=== PATIENT | female | born 1990 | race African-American/Black ===

== ENCOUNTER 2017-12-24 08:01 | Emergency (ER) | payer MEDICAID ==
[~2017-12-24] VITALS: Ht 165.1 cm; Wt 81.2 kg
[2017-12-24] MEDS ORDERED: Fluorescein Strips RIGHT EYE ONE (08:45)
[2017-12-24] MEDS ORDERED: Fluorescein Strips ONE (08:45)
[2017-12-24] MEDS ORDERED: Pred Forte 1% Opth Susp 1ml RIGHT EYE ONE (08:45)
[2017-12-24] MEDS ORDERED: Tropicamide 1% Opth 15ml Soln RIGHT EYE ONE (08:45)
[2017-12-24] MEDS ORDERED: Tetracaine 0.5% Opth 4ml Soln RIGHT EYE ONE (08:45)
[2017-12-24 08:49] VITALS: BP 107/70
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
[2017-12-24 09:09] VITALS: BP 107/70
== END 2017-12-24 09:29 | disposition home or self-care (01) ==
LOC: EMR 08:39
DX: H20.9 Unspecified iridocyclitis (principal); H57.10 Ocular pain, unspecified eye
CPT/HCPCS: 99282

== ENCOUNTER 2018-05-14 22:16 | Emergency (ER) | payer MEDICAID ==
[2018-05-15 04:56] LABS: APPEARANCE,URINE CLOUDY; COLOR,URINE YELLOW
[2018-05-15 04:57] LABS: BILIRUBIN, URINE NEGATIVE (NEGATIVE); GLUCOSE, URINE (UA) NEGATIVE (NEGATIVE); KETONES,URINE 1+ (NEGATIVE); LEUKOCYTE ESTERASE ,URINE 2+ (NEGATIVE); NITRITE,URINE NEGATIVE (NEGATIVE); PH,URINE 6.5 (4.5-8.0); PROTEIN,URINE 2+ (NEGATIVE); UROBILINOGEN,URINE 4 MG/DL (0.0-1.0)
--- NOTE | 2018-05-15 04:58 | Emergency Room Report ---
History of Present Illness General Chief Complaint: To Be Triaged Source: Patient Present Illness HPI This is a 27-year-old female no past medical history. She presents with chief complaint of vaginal bleeding and passing a mass. She had a D&C for an on February 10. She was 12 weeks then. She was bleeding for about a month. She complaining of severe bleeding and cramping pain started yesterday. Pain was severe. After she passed a mass, she felt better. Pain improved. Denies any fever chills but denies any nausea vomiting. No other complaint. Allergies: Coded Allergies: No Known Allergies (Unverified , 12/24/17) Patient History Past Medical History: see triage record, old chart reviewed Past Surgical History: other Pertinent Family History: none Social History: Denies: smoking Now: No Immunizations: other Reviewed Nursing Documentation: PMH: Agreed; PSxH: Agreed Review of Systems Eye: Denies: eye pain, blurred vision ENT: Denies: ear pain, nose congestion, throat swelling Respiratory: Denies: cough, shortness of breath Cardiovascular: Denies: chest pain, palpitations Gastrointestinal: Denies: abdominal pain, diarrhea, nausea, vomiting Genitourinary: Reports: vag bleed/dc Musculoskeletal: Denies: back pain, joint pain Skin: Denies: rash Neurological: Denies: headache, numbness Endocrine: Denies: increased thirst, increased urine Hematologic/Lymphatic: Denies: easy bruising All Other Systems: negative except mentioned in HPI Physical Exam vitals unremarkable Sp02 EP Interpretation: reviewed, normal General Appearance: well appearing, no apparent distress, alert Head: normocephalic, atraumatic Eyes: bilateral eye PERRL, bilateral eye EOMI ENT: hearing grossly normal, normal pharynx Neck: full range of motion, supple, no meningismus Respiratory: chest non-tender, lungs clear, normal breath sounds Cardiovascular #1: regular rate, rhythm, no murmur Gastrointestinal: normal bowel sounds, non tender, no mass, no organomegaly, no bruit, non-distended Musculoskeletal: back normal, gait/station normal, normal range of motion Psychiatric: mood/affect normal Skin: warm/dry Medical Decision Making Diagnostic Impression: Primary Impression: Retained products of conception Additional Impression: UTI (urinary tract infection) Qualified Codes: N30.00 - Acute cystitis without hematuria ER Course Is presents with vaginal bleeding and passed a mass that is most likely a product of conception. Bleeding much improved. Cramping improved. She may have a urinary tract infection. I sent the mass to pathology. We'll discharge home. Status: improved Disposition: HOME, SELF-CARE Condition: Stable Scripts No Active Prescriptions or Reported Meds Arpan Colney MD May 15, 2018 04:58
--- NOTE | 2018-05-15 06:13 | NUR ---
Note rogersone in EDM - 05/15/18 at 0707 by EDER ED Nurse Note: at 1250 pt walked in c/o possible miscarriage, pt states she is few wks and taken test at home which was positive, but started bleeding today x 3hrs, went through 5 pads. pt states last menstruation was 03/31/18. Pt vss, ambulatory w/ steady gait, will cont monitor.
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
== END 2018-05-15 | disposition home or self-care (01) ==
LOC: EMR 05-15 04:59
DX: O03.4 Incomplete spontaneous abortion without complication (principal); N30.00 Acute cystitis without hematuria
CPT/HCPCS: 81001; 81025; 87086; 99283